=== PATIENT | male | born 1990 | race African-American/Black ===

== ENCOUNTER 2024-03-03 10:16 | Emergency (ER) | payer SELFPAY ==
[2024-03-03 10:29] VITALS: BP 193/132; PULSE 87; RESP 16; TEMP 36.6; O2SAT 100
--- NOTE | 2024-03-03 10:30 | ED.EYEPROB ---
HPI - Eye Problem General Chief complaint: Eye Problems Stated complaint: Left Eye Irritation Time Seen by Provider: 03/03/24 10:30 Source: patient Mode of arrival: ambulatory Limitations: no limitations History of Present Illness HPI Narrative: Chris is a 33-year-old male patient presenting to the clinic today with complaints of left eye irritation. He reports that he was sent here from work as he had some eye redness. Blood pressure was initially 193/132 and 200/130. Patient denies any headache, visual changes, dizziness, chest pain, or shortness of breath however he does feel anxious. No history of hypertension in the past and does not take any current medications. Review of Systems Review of Systems: Pertinent positives per HPI. Patient denies any fever, chills, rash, headache, visual changes, dizziness, cough, runny nose, sore throat, shortness of breath, chest pain, palpitations, nausea, vomiting, diarrhea, constipation, abdominal pain, or any urinary issues. PMFSH Comments At the time of my signature, I reviewed and agree with the nursing past medical, surgical, social, and family history. There is no relevant family history pertinent to the patient complaint. Exam Narrative: General: Well-developed, well nourished, delayed when answer questions. Head: Normocephalic, atraumatic Eyes: Pupils equally round and reactive to light bilaterally, EOM intact, right sclera and conjunctive clear, left sclera and conjunctiva injected, no discharge, lids normal Ears: TMs intact and clear, ear canals clear, no drainage, grossly hearing normal. Nose: Nares patent, no discharge, no inflammation, no sinus tenderness. Mouth: Oropharynx without lesions or masses, good dentition, MMM. Neck: Supple, trachea midline, no enlargement of anterior or posterior cervical nodes, no thyroid masses or goiter palpable. Cardio: Regular rate and rhythm, s1 and s2 normal, no murmur appreciated. Resp: Clear to auscultation bilaterally anteriorly and posteriorly, no rhonchi, rales, wheezing or rubs Course Course Emergency Course: Portions of this record may have been created with voice recognition software. Level of Care: Express Care Visit Vital Signs Vital signs: Vital Signs Temperature 36.6 C 03/03/24 10:29 Pulse Rate 87 03/03/24 10:29 Respiratory Rate 16 03/03/24 10:29 Blood Pressure 193/132 H 03/03/24 10:29 Pulse Oximetry 100 03/03/24 10:29 Oxygen Delivery Room Air 03/03/24 10:29 Temperature 36.6 C 03/03/24 10:29 Pulse Rate 87 03/03/24 10:29 Respiratory Rate 16 03/03/24 10:29 Blood Pressure 193/132 H 03/03/24 10:29 Pulse Oximetry 100 03/03/24 10:29 Oxygen Delivery Room Air 03/03/24 10:29 Vital signs reviewed Transfer Transfered to: [facility] Transportation: Other (private car) Transfer rationale: Hypertension urgency/crisis- Dr. Hightower accepts patient. 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 Patient appears to be nontoxic. Plan: Patient came into the ED clinic for possible pinkeye but was found to have a blood pressure of 193/132 and 200/130. Recommend transfer to the ER for hypertension urgency. Patient denies any dizziness, headache, visual changes, weakness, shortness of breath or chest pain. Supportive measures were discussed with the patient and they voiced understanding discharge instructions and agrees to treatment plan. Return precautions reviewed Differential Diagnosis Differential diagnosis: Likely corneal abrasion, conjunctivitis, acute iritis, hyphema, periorbital cellulitis, subconjunctival hemorrhage, glaucoma, corneal ulcer and ruptured globe Discharge Plan Discharge Clinical Impression: Hypertensive urgency, Acute conjunctivitis, left eye Patient Disposition: Acute Care Hospital Condition: S
[2024-03-03 10:35] VITALS: BP 200/130
== END 2024-03-03 11:35 | disposition short-term general hospital (02) ==
PROVIDERS: Emergency Provider Nurse Practitioner Family
DX: I16.0 Hypertensive urgency (principal); H10.32 Unspecified acute conjunctivitis, left eye
CPT/HCPCS: 99212; G0463